=== PATIENT | female | born 1980 | race Caucasian/White ===

== ENCOUNTER 2016-04-02 13:23 | Emergency (ER) | payer BC ==
[~2016-04-02] VITALS: Ht 180.3 cm; Wt 78.5 kg
[2016-04-02 13:30] VITALS: Ht 180.3 cm; Wt 78.5 kg
[2016-04-02] MEDS ORDERED: PROCHLORPERAZINE 5 MG/ML 2 ML VIAL IV STA (14:24)
[2016-04-02] MEDS ORDERED: HYDROmorphone INJ 1 MG/ML SYR IV STA (14:24)
[2016-04-02] MEDS ORDERED: SODIUM CHLORIDE 0.9% 1000ML 2,000 ML IV STA (14:24)
[2016-04-02] MEDS ORDERED: BCPILLS PO (14:45)
[2016-04-02 14:54] LABS: BASO % 0.2 %; BASO ABS # 0.02 K/uL (0-0.2); COMPLETE YES; EOS % 0.5 %; HEMATOCRIT 38.6 % (37-47); IG% 0.4 %; LYMPH % 18.4 %; LYMPH ABS # 1.88 K/uL (1.2-3.4); MEAN CELL VOLUME 89.8 fL (80-100); MEAN CORPUSCULAR HEMOGLOBIN 31.4 pg (25-34); MEAN PLATELET VOLUME 9.1 fL (7.4-10.4); MONO % 10.2 %; NEUT % 70.3 %; PLATELET COUNT 400 K/uL (130-400)
--- NOTE | 2016-04-02 14:54 | EMERGENCY ROOM VISIT NOTE ---
History Report prepared by Rene: Jace Ye Under the Supervision of: Dr. Jamia Brandt M.D. First contact with patient: 14:09 Chief Complaint: ILLNESS Stated Complaint: [employer] SUSPECTS MENINGITIS History of Present Illness The patient is a 35 year old female who presents to the Emergency Room with complaints of a constant worsening headache for the past 4 days. The patient currently rates her discomfort as a 10/10 in severity. The patient states that she has been having a worsening headache for four days, and she states that she has felt like she has been having a fever, chills, and some sweating for the past two days. She additionally states that she has been having some pain between her shoulder blades, and she is having some confusion. The patient states that she has a history of migraines, however this one feels different and it is in the back of her head and behind her eyes. The patient denies any vomiting, diarrhea, and any chances of being . The patient states that the light irritates her, however sound does not affect her. She states that her ams and legs have normal motor functions. The patient sates that she also was having flu like symptoms since March 18, however they went away 8 days ago. The patient additionally states that she was just on a long flight to [facility]. She additionally states that she has a chronic vaginitis. Source of History: patient Onset: four days ago Position: head Symptom Intensity: 10/10 Quality: ache Timing: constant, worsening Associated Symptoms: + chills, + diaphoresis, + fevers, + headache Note: Associated symptoms: confusion, and pain between shoulder blades. Review of Systems See HPI for pertinent positives & negatives. A total of 10 systems reviewed and were otherwise negative. Past Medical & Surgical Medical Problems: (1) Vaginitis Social History Smoking Status: Never Smoker Marital Status: Housing Status: lives with significant other Occupation Status: employed Current/Historical Medications Scheduled Control Pills ( Control Pills), 1 TAB PO DAILY Clindamycin Hcl (Cleocin), 300 MG PO QID Fluconazole (Diflucan), 1 TAB PO DAILY Allergies Coded Allergies: Amoxicillin (Unverified Allergy, Severe, fungal infection, 04/02/16) Penicillins (Unverified Allergy, Severe, fungal infection, 04/02/16) Physical Exam Vital Signs Date Time Temp Pulse Resp B/P Pulse Ox O2 Delivery O2 Flow Rate FiO2 04/02/16 17:39 37.2 92 18 116/69 100 04/02/16 14:54 92 04/02/16 14:49 92 18 123/67 100 Room Air 04/02/16 13:30 37.2 100 16 122/78 99 Physical Exam Vital signs reviewed. General: Well-appearing female, in no significant distress. HEENT: Positive photophobia. No meningeal signs. No scleral icterus, PERRLA, neck supple. Atraumatic. Cardiovascular: Regular rate and rhythm, no extra sounds. Pulmonary: Clear to auscultation bilaterally, normal work of breathing. Abdomen: Soft, nontender, nondistended, positive bowel sounds. Musculoskeletal: Atraumatic, no peripheral edema. Neurologic: Patient awake alert and oriented x 3, full strength in all 4 extremities. Cranial nerves 2 through 12 grossly intact. No meningeal signs Skin: Warm, dry, no rash Medical Decision & Procedures ER Provider Diagnostic Interpretation: CT results as stated below per my review and radiologist interpretation: CT OF THE HEAD WITHOUT CONTRAST CLINICAL HISTORY: Headache. COMPARISON STUDY: No previous studies for comparison. CT DOSE: 601.98 mGy.cm TECHNIQUE: Helical axial images of the head were obtained without IV contrast. Automated exposure control was utilized for the study. FINDINGS: No acute intracranial hemorrhage, midline shift or mass effect is present. Ventricular system is normal. The basilar cisterns are patent. There are no extra axial collections. Pretty-white differentiation is maintained. There are no findings to suggest acute dural sinus thrombosis or acute territorial infarct. The right maxillary sinus is largely opacified and contains an air-fluid level. There is moderate mucosal thickening of the left maxillary sinus. Note is also made of extensive mucosal thickening of the right sphenoid sinus and marked mucosal thickening with near complete opacification of the ethmoid sinuses. An air-fluid level within the frontal sinuses is noted. Mastoid air cells are clear. There are no calvarial abnormalities. IMPRESSION: 1. No acute intracranial findings. 2. Extensive paranasal sinus opacification. The findings suggest acute sinusitis. Electronically signed by: Scott Burrell M.D. 04/02/2016 4:21 PM Dictated Date/Time: 04/02/2016 4:16 PM Laboratory Results 04/02/16 14:40 Red Blood Count 4.30, Mean Corpuscular Volume 89.8, Mean Corpuscular Hemoglobin 31.4, Mean Corpuscular Hemoglobin Concent 35.0, Mean Platelet Volume 9.1, Neutrophils (%) (Auto) 70.3, Lymphocytes (%) (Auto) 18.4, Monocytes (%) (Auto) 10.2, Eosinophils (%) (Auto) 0.5, Basophils (%) (Auto) 0.2, Neutrophils # (Auto ) 7.17, Lymphocytes # (Auto) 1.88, Monocytes # (Auto) 1.04, Eosinophils # (Auto ) 0.05, Basophils # (Auto) 0.02 04/02/16 14:40 Test 04/02/16 14:40 04/02/16 15:40 White Blood Count 10.20 K/uL (4.8-10.8) Red Blood Count 4.30 M/uL (4.2-5.4) Hemoglobin 13.5 g/dL (12.0-16.0) Hematocrit 38.6 % (37-47) Mean Corpuscular Volume 89.8 fL (80-100) Mean Corpuscular Hemoglobin 31.4 pg (25-34) Mean Corpuscular Hemoglobin Concent 35.0 g/dl (32-36) Platelet Count 400 K/uL (130-400) Mean Platelet Volume 9.1 fL (7.4-10.4) Neutrophils (%) (Auto) 70.3 % Lymphocytes (%) (Auto) 18.4 % Monocytes (%) (Auto) 10.2 % Eosinophils (%) (Auto) 0.5 % Basophils (%) (Auto) 0.2 % Neutrophils # (Auto) 7.17 K/uL (1.4-6.5) Lymphocytes # (Auto) 1.88 K/uL (1.2-3.4) Monocytes # (Auto) 1.04 K/uL (0.11-0.59) Eosinophils # (Auto) 0.05 K/uL (0-0.5) Basophils # (Auto) 0.02 K/uL (0-0.2) RDW Standard Deviation 39.9 fL (36.4-46.3) RDW Coefficient of Variation 12.2 % (11.5-14.5) Immature Granulocyte % (Auto) 0.4 % Immature Granulocyte # (Auto) 0.04 K/uL (0.00-0.02) Anion Gap 11.0 mmol/L (3-11) Est Creatinine Clear Calc Drug Dose 113.5 ml/min Estimated GFR () 115.0 Estimated GFR (Non- 99.2 BUN/Creatinine Ratio 8.8 (10-20) Calcium Level 8.8 mg/dl (8.5-10.1) Magnesium Level 2.3 mg/dl (1.8-2.4) Total Bilirubin 0.3 mg/dl (0.2-1) Direct Bilirubin < 0.1 mg/dl (0-0.2) Aspartate Amino Transf (AST/SGOT) 15 U/L (15-37) Alanine Aminotransferase (ALT/SGPT) 22 U/L (12-78) Alkaline Phosphatase 70 U/L (45-117) Total Protein 7.6 gm/dl (6.4-8.2) Albumin 3.2 gm/dl (3.4-5.0) Human Chorionic Gonadotropin, Qual NEG (NEG) Urine Color DK YELLOW Urine Appearance CLEAR (CLEAR) Urine pH 6.0 (4.5-7.5) Urine Specific Marshall 1.023 (1.000-1.030) Urine Protein NEG (NEG) Urine Glucose (UA) NEG (NEG) Urine Ketones TRACE (NEG) Urine Occult Blood NEG (NEG) Urine Nitrite NEG (NEG) Urine Bilirubin NEG (NEG) Urine Urobilinogen NEG (NEG) Urine Leukocyte Esterase TRACE (NEG) Urine WBC (Auto) 1-5 /hpf (0-5) Urine RBC (Auto) 0-4 /hpf (0-4) Urine Hyaline Casts (Auto) 5-10 /lpf (0-5) Urine Epithelial Cells (Auto) >30 /lpf (0-5) Urine Bacteria (Auto) 1+ (NEG) Laboratory results per my review. Medications Administered Medications (Trade) Dose Ordered Sig/Neema Route Start Time Stop Time Status Last Admin Dose Admin Sodium Chloride (Nss 1000ml) 2,000 ml @ 999 mls/hr Q2H1M STAT IV 04/02/16 14:24 04/02/16 16:24 DC 04/02/16 14:49 999 MLS/HR Prochlorperazine Edisylate (Compazine Inj) 10 mg NOW STAT IV 04/02/16 14:24 04/02/16 14:27 DC 04/02/16 14:52 10 MG Hydromorphone HCl (Dilaudid Inj) 1 mg NOW STAT IV 04/02/16 14:24 04/02/16 14:27 DC 04/02/16 14:55 1 MG Methylprednisolone Sodium Succinate 10 mg 10 mg NOW STAT IV 04/02/16 14:24 04/02/16 14:27 DC 04/02/16 14:51 10 MG Clindamycin Phosphate/Dextrose (Cleocin Iv/ Dextrose Add-Ronco 100ML) 106 ml @ 100 mls/hr ONE ONCE IV 04/02/16 16:30 04/02/16 17:33 DC 04/02/16 17:05 100 MLS/HR Oxymetazoline HCl (Afrin 0.05% Nasal Grayson) 2 sprays NOW ONCE SIMON 04/02/16 16:30 04/02/16 16:31 DC 04/02/16 17:31 2 SPRAYS Clindamycin HCl (Cleocin 150MG Home Pack) 1 homepack UD ONCE PO 04/02/16 17:00 04/02/16 17:01 DC 04/02/16 17:31 1 HOMEPACK Acetaminophen/ Hydrocodone Bitart ([place] 5/325mg Home Pack) 1 homepack UD ONCE PO 04/02/16 17:00 04/02/16 17:01 DC 04/02/16 17:31 1 HOMEPACK ED Course 1420: Past medical records reviewed. The patient was evaluated in room C8. A complete history and physical examination was performed. 1424: Solu-Medrol IV 10mg IV, Dilaudid Inj 1mg IV, Compazine Inj 10mg IV, Sodium Chloride 2000 ml @ 999 mls/hr IV 1630: Afrin 0.05% Nasal Grayson 2 sprays SIMON, Clindamycin Phosphate 900mg/ Dextrose 106 ml @ 100 mls/hr IV 1632: Upon reevaluation, the patient appeared to have improvement of her symptoms. I discussed findings with her. She verbalized agreement of the treatment plan. She was discharged home. 1700: [place] 5/325mg 1 Home Pack PO, Cleocin 150mg 1 home pack PO Medical Decision Differential Diagnoses include: Intracranial hemorrhage, intracranial mass, migraine headache, tension headache, sinusitis, meningitis This patient was evaluated and appeared to be in no significant distress. IV access was obtained and laboratory work was drawn. The patient was placed on the monitoring manager and found to be in a normal sinus rhythm. Patient was sent over for concerns of meningitis however the patient had a headache since March 18, she has no neck pain, normal white count and no fever. CT scan of the head was performed and reveals no evidence of acute intracranial abnormality however the patient has notable sinusitis. The patient was medicated with Afrin nasal spray, IV clindamycin. She was informed of the findings. She states that her vaginitis/yeast is magnified with any antibiotic therapy. She requested Diflucan daily during the course. Patient was given a prescription for Diflucan 100 mg daily while taking clindamycin 300 mg 4 times a day for 10 days. She will use Afrin nasal spray twice daily for 3 days. Patient will follow-up with her primary care physician for reevaluation this week and return to the ER for worsening of symptoms or any medical concerns. Impression Primary Impression: Sinusitis Additional Impression: Headache Scribe Attestation The scribe's documentation has been prepared under my direction and personally reviewed by me in its entirety. I confirm that the note above accurately reflects all work, treatment, procedures, and medical decision making performed by me. Departure Information Dispostion Home / Self-Care Prescriptions Fluconazole (DIFLUCAN) 100 Mg Tab 1 TAB PO DAILY for 10 Days, #10 TAB Prov: Jamia Brandt M.D. 04/02/16 Clindamycin Hcl (CLEOCIN) 300 Mg Cap 300 MG PO QID for 10 Days, #40 CAP Prov: Jamia Brandt M.D. 04/02/16 Referrals RV. Helms MD (PCP) Forms HOME CARE DOCUMENTATION FORM, IMPORTANT VISIT INFORMATION, WORK / SCHOOL INSTRUCTIONS Patient Instructions A Signature Page, My [facility] Additional Instructions Diagnosis: Sinusitis, headache Clindamycin 300 mg 4 times daily for 10 days. Diflucan 100 mg daily for 10 days. Afrin nasal spray 2 sprays in each nostril twice daily for 3 days. [place] one to 2 tabs every 6 hours as needed for pain. Do not drive or take Tylenol with this medication. Ibuprofen 600 mg every 6 hours as needed for pain with food. Follow-up with your primary care physician this week for reevaluation. Return to the ER for worsening of symptoms or any medical concerns.
[2016-04-02 15:13] LABS: ALT/SGPT 22 U/L (12-78); BLOOD UREA NITROGEN 7 mg/dl (7-18); BUN/CREATININE RATIO 8.8 (10-20); CALCIUM 8.8 mg/dl (8.5-10.1); CARBON DIOXIDE 28 mmol/L (21-32); CHLORIDE 103 mmol/L (98-107); CREATININE 0.78 mg/dl (0.60-1.20); GLUCOSE 90 mg/dl (70-99); MAGNESIUM 2.3 mg/dl (1.8-2.4); POTASSIUM 3.7 mmol/L (3.5-5.1); SODIUM 142 mmol/L (136-145)
[2016-04-02 15:16] LABS: ALKALINE PHOSPHATASE 70 U/L (45-117); AST/SGOT 15 U/L (15-37)
[2016-04-02 15:33] LABS: PREG INTERNAL NEGATIVE QC NEG CLEAR BACKGROUND; PREG INTERNAL POSITIVE QC POS CONTROL LINE
--- NOTE | 2016-04-02 16:23 | DIAGNOSTIC IMAGING REPORT ---
CT OF THE HEAD WITHOUT CONTRAST CLINICAL HISTORY: Headache. COMPARISON STUDY: No previous studies for comparison. CT DOSE: 601.98 mGy.cm TECHNIQUE: Helical axial images of the head were obtained without IV contrast. Automated exposure control was utilized for the study. FINDINGS: No acute intracranial hemorrhage, midline shift or mass effect is present. Ventricular system is normal. The basilar cisterns are patent. There are no extra axial collections. Pretty-white differentiation is maintained. There are no findings to suggest acute dural sinus thrombosis or acute territorial infarct. The right maxillary sinus is largely opacified and contains an air-fluid level. There is moderate mucosal thickening of the left maxillary sinus. Note is also made of extensive mucosal thickening of the right sphenoid sinus and marked mucosal thickening with near complete opacification of the ethmoid sinuses. An air-fluid level within the frontal sinuses is noted. Mastoid air cells are clear. There are no calvarial abnormalities. IMPRESSION: 1. No acute intracranial findings. 2. Extensive paranasal sinus opacification. The findings suggest acute sinusitis. Electronically signed by: Scott Burrell M.D. 04/02/2016 4:21 PM Dictated Date/Time: 04/02/2016 4:16 PM
[2016-04-02 16:25] LABS: URINE APPEARANCE CLEAR (CLEAR); URINE BILIRUBIN NEG (NEG); URINE COLOR DK YELLOW; URINE EPITHELIAL CELL AUTO >30 /lpf (0-5); URINE NITRITE NEG (NEG); URINE SPECIFIC GRAVITY 1.023 (1.000-1.030); UROBILINOGEN NEG (NEG); ZZUR CULT IF INDIC CLEAN CATCH YES
[2016-04-02] MEDS ORDERED: CLINDAMYCIN IV 900 MG in DEXTROSE 5% ADD-VANTAGE 100ML 100 ML IV ONE (16:30)
[2016-04-02] MEDS ORDERED: OXYMETAZOLINE HCL 0.05% NA SPR 15 ML BTL NAE ONE (16:30)
[2016-04-02 16:31] LABS: REVIEW REQ? NO
[2016-04-02 16:32] LABS: MANUAL MICROSCOPIC REQUIRED? NO
[2016-04-02] MEDS ORDERED: FLUC100T4 PO (16:45)
[2016-04-02] MEDS ORDERED: CLIN300C2 PO (16:45)
[2016-04-02] MEDS ORDERED: CLINDAMYCIN 150MG HOME PACK PO ONE (17:00)
[2016-04-02] MEDS ORDERED: NORCO 5/325MG HOME PACK PO ONE (17:00)
[2016-04-02 17:39] VITALS: BP 116/69; PULSE 92; TEMP 37.2; O2SAT 100
[2016-11-30] MEDS ORDERED: HYDR-5688 PO (10:32)
== END 2016-04-02 17:40 | disposition home or self-care (01) ==
LOC: C.EDB 13:25 → C.EDC 17:40
DX: J32.9 Chronic sinusitis, unspecified (principal); R51 Headache; N76.1 Subacute and chronic vaginitis; Z79.3 Long term (current) use of hormonal contraceptives; Z79.899 Other long term (current) drug therapy

== ENCOUNTER → 2016-04-25 | Outpatient (CLI) | payer BC ==
[~2016-04-25] MED LIST: BCPILLS PO; HYDR-5688 PO
--- NOTE | 2016-04-25 08:53 | DIAGNOSTIC IMAGING REPORT ---
FUSION CT SINUSES W/O CLINICAL HISTORY: Acute sinusitis COMPARISON STUDY: No previous studies for comparison. FINDINGS: There is bilateral maxillary sinus mucosal thickening left greater than right. There is mild to moderate ethmoid mucosal thickening. There is mild mucosal thickening within the sphenoid. There is moderate mucosal thickening within the frontal sinuses. The right ostiomeatal unit is patent. The left ostiomeatal unit is occluded by soft tissue. There is partial pneumatization of the right middle turbinate The portal notches are covered. The olfactory fossa measures 4 mm in depth bilaterally. IMPRESSION: 1. Mild pansinus disease 2. The right ostiomeatal unit is patent. The left ostiomeatal unit is occluded by soft tissue. Electronically signed by: Lawson Avila M.D. 04/25/2016 8:52 AM Dictated Date/Time: 04/25/2016 8:48 AM
== END | disposition home or self-care (01) ==
LOC: C.CTS 08:30
DX: J01.90 Acute sinusitis, unspecified (principal)

== ENCOUNTER → 2016-05-29 | Outpatient (CLI) | payer BC ==
--- NOTE | 2016-05-29 09:34 | DIAGNOSTIC IMAGING REPORT ---
THYROID ULTRASOUND HISTORY: Dysphagia R13.10 Trouble [id number] COMPARISON: None. FINDINGS: Right lobe: 5.7 cm maximum dimension. 2 mm hypoechoic nodule Left lobe: 5.3 cm maximum dimension. No significant nodularity. Isthmus: No nodules. IMPRESSION: 1. No significant thyroid nodularity or enlargement. 2. 2 mm low suspicion mid pole right thyroid nodule Electronically signed by: Archie Zheng M.D. 05/29/2016 9:33 AM Dictated Date/Time: 05/29/2016 9:32 AM
== END | disposition home or self-care (01) ==
LOC: C.ULTRBC 08:48
PROVIDERS: ATTEND Internal Medicine
DX: R13.10 Dysphagia, unspecified (principal)

== ENCOUNTER → 2016-08-29 | Outpatient (CLI) | payer BC ==
--- NOTE | 2016-08-29 13:57 | DIAGNOSTIC IMAGING REPORT ---
VIDEO SWALLOW HISTORY: Dysphagia DYSPHAGIA TECHNIQUE: Video fluoroscopic evaluation of swallowing was performed in the AP and lateral projections by the speech pathology staff. The patient is fed nectar-thick and thin liquid barium, a barium coated wafer, and barium pudding. FLUOROSCOPY TIME: 2.2 minutes. COMPARISON STUDY: None. FINDINGS: There is normal hyoid excursion and epiglottic deflection. No significant penetration or aspiration identified. Swallowing function is within normal limits. IMPRESSION: 1. No aspiration identified. 2. Please see the speech pathologist report for detailed findings and recommendations. Electronically signed by: Archie Zheng M.D. 08/29/2016 1:56 PM Dictated Date/Time: 08/29/2016 1:53 PM
--- NOTE | 2016-08-29 17:39 | SWALLOWING EVALUATION ---
REFERRING SPEECH PATHOLOGIST: n/a HISTORY: This 35 year-old female was referred for a VFSS at [facility] in order to address c/o globus sensation and increased difficulty swallowing thick secretions. The patient has a PMH significant for chronic sinusitis and is being followed by an distributor operator (referring physician). Currently the patient's diet level is regular. PROCEDURE: The patient was seen in the Radiology Department of [facility] for the VFSS. Cursory examination of the oral cavity revealed adequate dentition. Movement of the articulators was WNL. The patient was seated on a stool and was viewed in both the Anterior-Posterior (A-P) and Lateral planes. Volitional phonation exercises completed in the A-P plane revealed bilateral vocal fold movement and vocal intensity within functional limits. In the lateral plane, the patient was given the following boluses: 1 tsp. thin liquid barium x 2, single swallow thin liquid barium self-presented from a cup, sequential swallows of thin liquid barium self-presented from a cup, 1 tsp. nectar-thick liquid barium, single swallow nectar-thick liquid barium self-presented from a cup, 1 tsp. barium pudding, and 1 club cracker with barium pudding. The patient was then repositioned into the A-P plane and given 1 tsp. barium pudding. RESULTS: Oral Stage: No labial bolus escape. Cohesive bolus formed between tongue and palate during oral bolus hold of thin liquids. Bolus preparation and transport timely and complete. No oral bolus retention after the swallow. Pharyngeal stage of the swallow initiated when the bolus head was at the posterior angle of the ramus. The oral stage of the swallow was WFL. Pharyngeal Stage: No bolus between the soft palate and pharyngeal wall. Laryngeal elevation, anterior hyoid excursion, epiglottic inversion, laryngeal vestibular closure, pharyngeal stripping wave, pharyngeal contraction were all complete. Distention and duration of PES opening was complete. No bolus retention between the tongue base and pharyngeal wall. No pharyngeal bolus retention after the swallow. There was no penetration or aspiration during this study. The pharyngeal swallow was WFL. Esophageal Stage: A pudding bolus transited the esophagus without evidence of retention. SUMMARY/RECOMMENDATIONS: This patient presents with normal oral-pharyngeal and esophageal swallow function. The following is recommended: 1. Regular diet as tolerated 2. Consideration of f/u with referring physician as needed if symptoms persist. A summary of the results and recommendations was discussed with the patient immediately following the study. She verbalized understanding. Thank you for referral of this patient. Please contact me at if any additional information is needed.
== END | disposition home or self-care (01) ==
LOC: C.RAD 13:03
PROVIDERS: ATTEND Otolaryngology
DX: J32.0 Chronic maxillary sinusitis (principal); R13.10 Dysphagia, unspecified

== ENCOUNTER → 2016-11-10 | Outpatient (CLI) | payer BC ==
--- NOTE | 2016-11-10 17:14 | DIAGNOSTIC IMAGING REPORT ---
CHEST 2 VIEWS ROUTINE CLINICAL HISTORY: 35 years-old Female presenting with PRE OP TESTING. TECHNIQUE: PA and lateral views of the chest were obtained. COMPARISON: None. FINDINGS: Cardiomediastinal silhouette normal. Lungs and pleural spaces clear. Osseous structures normal. Upper abdomen normal. IMPRESSION: 1. No acute cardiopulmonary disease. Electronically signed by: Raz Villegas M.D. 11/10/2016 5:13 PM Dictated Date/Time: 11/10/2016 5:12 PM
== END | disposition home or self-care (01) ==
LOC: C.RAD 16:50
PROVIDERS: ATTEND Physician Assistant Medical
DX: Z01.810 Encounter for preprocedural cardiovascular examination (principal)

== ENCOUNTER → 2016-11-30 | Day surgery (SDC) | payer BC ==
[2016-11-08 15:24] VITALS: Ht 180.3 cm; Wt 90.0 kg
[~2016-11-30] VITALS: Ht 180.3 cm; Wt 90.0 kg
[~2016-11-30] MED LIST changes: +ATROPINE SULFATE 0.1 MG/ML 5ML SYR IV PRN; +BUPIVACAINE 0.25% 2.5MG/ML PF 10 ML VIAL ONE; +CLINDAMYCIN PHOS 150 MG/ML 2 ML VIAL IV SCH; +DEXAMETHASONE SOD INJ 4 MG/ML VIAL IV PRN; +DEXAMETHASONE SOD INJ 4 MG/ML VIAL ONE; +EpHEDrine SULFATE INJ 50 MG/ML AMP IV PRN; +FENTANYL CITRATE INJ 50 MCG/1 ML 2 ML VIAL IV PRN; +FENTANYL CITRATE INJ 50 MCG/1 ML 2 ML VIAL ONE; +HYDROCODONE/ACETAMOPHEN 5/325MG TAB PO PRN; +KETOROLAC TROMETHAMINE 30 MG/ML VIAL IV. PRN; +KETOROLAC TROMETHAMINE 30 MG/ML VIAL ONE; +LABETALOL HCL IV 5 MG/ML 20ML IV PRN; +LACTATED RINGER'S 1000ML 1,000 ML IV SCH; +LIDOCAINE HCL 2% 2 ML VIAL (20MG/ML) ONE; +METOCLOPRAMIDE HCL INJ 5 MG/ML 2 ML VIAL IV PRN; +MIDAZOLAM HCL 1 MG/ML 2ML VIAL ONE; +MoRPHine SULFATE 4 MG/ML 1 ML CARP\\VIAL IV PRN; +ONDANSETRON INJ 2 MG/ML 2 ML VIAL IV PRN; +ONDANSETRON INJ 2 MG/ML 2 ML VIAL ONE; +PHENYLEPHRINE 100MCG/ML 5ML SYR IV PRN; +PROPOFOL IV EMULSION 10 MG/ML 20 ML VIAL IV ONE; +SODIUM CHLORIDE 0.9% 1000ML 1,000 ML IV SCH
--- NOTE | 2016-11-30 07:57 | History & Physical Bridge - SC ---
H&P Re-Evaluation Bridge Note: I have examined the patient, reviewed the History & Physical and in the interval since the performance of the History & Physical I have noted the following changes of clinical significance: No changes noted
[2016-11-30] MEDS: BUPIVACAINE/EPINEPHRINE 0.25% 1:200,000 30 ML VIAL ONE (09:44)
[2016-11-30] MEDS: BUPIVACAINE 0.25% 30 ML VIAL ONE ×2 (09:45→10:11)
--- NOTE | 2016-11-30 10:33 | Discharge Instructions-SurgCtr ---
Discharge Instructions Date of Service Nov 30, 2016. Visit Reason for Visit: Cubital Tunnel Syndrome, Medial Epicondylitis Discharge Discharge Diagnosis / Problem: SAME ABOVE Discharge Goals Goal(s): Decrease discomfort, Improve function Activity Recommendations Activity Limitations: as noted below Lifting Limitations: until after follow-up appointment Exercise/Sports Limitations: until after follow-up appointment Anesthesia . Post Anesthesia Instructions: If you have had General Anesthesia or IV Sedation: * Do not drive today. * Resume driving when surgeon permits. * Do not make important decisions or sign legal documents today. * Call surgeon for: 1. Temperature elevations greater than 101 degrees F. 2. Uncontrollable pain. 3. Excessive bleeding. 4. Persistent nausea and vomiting. 5. Medication intolerance (nausea, vomiting or rash). * For nausea and vomiting use only clear liquids such as: tea, soda, bouillon until nausea subsides, then gradually increase diet as tolerated. * If you have any concerns or questions, call your surgeon's office. If physician is unavailable and it is an emergency, call 911 or go to the nearest emergency room. . Instructions / Follow-Up Instructions / Follow-Up MEDICATIONS: * Resume previous medications unless instructed otherwise by your surgeon. * Always take pain medication on a full stomach or with food to avoid upset stomach. * Do not drink alcohol or drive while taking narcotics. * Ibuprofen or Tylenol may be taken if narcotic not needed. SPECIAL CARE INSTRUCTIONS: __ None _X_ Keep extremity elevated and iced x 48 hours; apply ice 20-30 minutes 8-10 times/day. May remove at night. _X_ Sling _X_24 hrs/day __ Remove at night __ Shoulder Immobilizer __ 24 hrs/day __ Remove at night _X_ Dressing _X_ Maintain until seen in office, may shower with plastic over site __ Remove dressings in 24-48 hours and then may shower __ Cover incisions with band-aids after showering __ Do not remove steri-strips Call physician if chills or temperature rises above 102 degrees or pain unrelieved by prescribed pain medications at . . Diet Recommendations Home Diet: no limitations Fluid Restriction: None Procedures Procedures Performed: Ulnar Nerve Transposition, right with Medial Tenotomy Pending Studies Studies pending at discharge: no Work Instructions Return To Work: after follow-up Medical Emergencies . Who to Call and When: Medical Emergencies: If at any time you feel your situation is an emergency, please call 911 immediately. . Non-Emergent Contact Non-Emergency issues call your: Primary Care Provider Call Non-Emergent contact if: you have a fever, temperature is above 101.5 . . "Provider Documentation" section prepared by Cortez Garcia. .
--- NOTE | 2016-11-30 10:37 | OPERATIVE REPORT ---
DATE OF OPERATION: 11/30/2016 PREOPERATIVE DIAGNOSES: Medial epicondylitis and cubital tunnel syndrome of the right elbow. POSTOPERATIVE DIAGNOSES: Same. PROCEDURE: Right medial tenotomy for medial epicondylitis with subcutaneous ulnar nerve transposition. SURGEON: Dr. Hernan Mathew. MARINE GEAR KEEPER: Sridhar Garcia PA-C, whose assistance was necessary for positioning the elbow and helping with instrumentation. ANESTHESIA: General. COMPLICATIONS: None. CONDITION: Stable to PACU. INDICATIONS: Mago is a pleasant 36-year-old female who presented to my office with pain and numbness mostly in the ulnar nerve distribution of her right fingers. She is also having a lot of medial epicondylitis. EMG study was diagnostic for cubital tunnel syndrome. After failing conservative treatment, she elected to undergo an ulnar nerve transposition with medial tenotomy. DESCRIPTION OF PROCEDURE: On 11/30/2016, she arrived at [facility] for the above procedure. She was seen in the preoperative holding area and the operative extremity was identified and signed. She was not given a preoperative antibiotic because she refused it preoperatively. She has had complications from antibiotics in the past and she was hoping to not have one. I talked to her about the risks of not having antibiotic and she still elected to go without antibiotic coverage for the case. She was then brought back to the operating room, laid on the table in supine position and put under general anesthesia. The right elbow was then prepped and draped in sterile fashion. Time-out was done and the patient and operative extremity was properly identified. A curvilinear incision was made directly over the medial epicondyle. Dissection was taken down through the fascia with care not to disrupt the medial antebrachial cutaneous nerves. Dissection was taken down to the cubital tunnel and the cubital tunnel was released. Care was taken to ensure complete release proximally with some removal of the intermuscular septum and the release was taken complete distally through the flexor pronator mass. The nerve was mobilized and the motor branch was left intact. Attention was then turned to the flexor pronator fascia. A sling was elevated for a subcutaneous transposition. Once the sling was elevated, the fascia was removed between the pronator teres and the flexor carpi ulnaris to complete the medial tenotomy for the medial epicondylitis. The ulnar nerve was then transposed and the sling was tied to the subcutaneous fat. The elbow was flexed and extended and there was no kinking of the nerve. There was plenty of room. The wound was then irrigated and closed with 3-0 Vicryl and 4-0 nylon sutures in a mattress fashion. She was then placed in a posterior splint, extubated, transferred to a [facility] and taken to the postanesthesia care unit in stable condition. She tolerated the procedure well. I attest to the content of the Intraoperative Record and any orders documented therein. Any exception s are noted below.
--- NOTE | 2016-11-30 11:04 | Anesthesia Progress Nt - [facility] ---
Anesthesia Post Op Note Date & Time Nov 30, 2016 at 11:04 Vital Signs Pain Intensity: 2 Vital Signs Past 12 Hours Date Time Temp Pulse Resp B/P (MAP) Pulse Ox O2 Delivery O2 Flow Rate FiO2 11/30/16 10:47 87 17 100 11/30/16 10:47 87 17 100 11/30/16 10:47 82 17 11/30/16 10:47 82 17 11/30/16 10:46 124/73 11/30/16 10:46 124/73 11/30/16 10:42 17 11/30/16 10:42 93 17 11/30/16 10:42 17 11/30/16 10:42 93 17 11/30/16 10:41 125/76 11/30/16 10:41 125/76 11/30/16 10:37 55 23 11/30/16 10:37 52 23 100 11/30/16 10:37 52 23 100 11/30/16 10:37 55 23 11/30/16 10:36 115/63 11/30/16 10:36 115/63 11/30/16 10:33 111/61 11/30/16 10:33 111/61 11/30/16 10:32 36.3 52 14 115/63 100 Mask 6 11/30/16 08:18 36.7 77 16 114/78 (90) 98 Room Air Notes Mental Status: alert / awake / arousable, participated in evaluation Pt Amnestic to Procedure: Yes Nausea / Vomiting: adequately controlled Pain: adequately controlled Airway Patency, RR, SpO2: stable & adequate BP & HR: stable & adequate Hydration State: stable & adequate Anesthetic Complications: no major complications apparent
[2016-11-30 11:34] VITALS: TEMP 36.4
[2016-11-30 12:18] VITALS: BP 109/71; PULSE 57; O2SAT 99
--- NOTE | 2016-11-30 15:39 | [facility] Post Operative Brief Note ---
Immediate Operative Summary Operative Date Nov 30, 2016. Pre-Operative Diagnosis Medial epicondylitis and cubital tunnel syndrome, right elbow Post-Operative Diagnosis same as preop Procedure(s) Performed Ulnar Nerve Transposition with Medial Tenotomy, Right Surgeon Dr. Mathew Clinic Director Surgeon(s) Tommy Garcia PA-C Estimated Blood Loss 20ml Findings as above Specimens none per surgeon Complication(s) None Disposition Recovery Room / PACU
== END | disposition home or self-care (01) ==
LOC: X.SURG 08:09
PROVIDERS: ATTEND Orthopaedic Surgery
DX: M77.01 Medial epicondylitis, right elbow (principal); G56.21 Lesion of ulnar nerve, right upper limb

== ENCOUNTER → 2017-02-01 | Day surgery (SDC) | payer BC ==
[2017-01-11 09:55] VITALS: Ht 180.3 cm; Wt 85.7 kg
[~2017-02-01] VITALS: Ht 180.3 cm; Wt 85.7 kg
[~2017-02-01] MED LIST changes: -BUPIVACAINE 0.25% 2.5MG/ML PF 10 ML VIAL ONE; +BUPIVACAINE 0.25% 30 ML VIAL ONE; +BUPIVACAINE/EPINEPHRINE 0.25% 1:200,000 30 ML VIAL ONE; -CLINDAMYCIN PHOS 150 MG/ML 2 ML VIAL IV SCH; -DEXAMETHASONE SOD INJ 4 MG/ML VIAL IV PRN; -EpHEDrine SULFATE INJ 50 MG/ML AMP IV PRN; +HYDROmorphone INJ 1 MG/ML SYR IV PRN; +KETAMINE HCL INJ 50 MG/ML 10 ML VIAL ONE; -KETOROLAC TROMETHAMINE 30 MG/ML VIAL IV. PRN; -LABETALOL HCL IV 5 MG/ML 20ML IV PRN; -METOCLOPRAMIDE HCL INJ 5 MG/ML 2 ML VIAL IV PRN; -MoRPHine SULFATE 4 MG/ML 1 ML CARP\\VIAL IV PRN; -PHENYLEPHRINE 100MCG/ML 5ML SYR IV PRN; +PROMETHAZINE HCL INJ 12.5 MG in SODIUM CHLORIDE 0.9% 50ML 50 ML IV PRN; +SODIUM CHLORIDE 0.9% INJ 10 ML VIAL ONE
--- NOTE | 2017-02-01 13:08 | OPERATIVE REPORT ---
DATE OF OPERATION: 02/01/2017 PREOPERATIVE DIAGNOSIS: Cubital tunnel syndrome of the left elbow. POSTOPERATIVE DIAGNOSIS: Same. PROCEDURE: Ulnar nerve subcutaneous transposition. SURGEON: Dr. Hernan Mathew. EXECUTIVE CANDIDATE DEVELOPER: Sridhar Garcia PA-C, whose assistance was necessary for helping with retraction and positioning the elbow. ANESTHESIA: General. COMPLICATIONS: None. CONDITION: Stable to PACU. INDICATIONS: Mago is a pleasant 36-year-old female who has been dealing with bilateral cubital tunnel syndrome. She had an ulnar nerve transposition on her right side several weeks ago. She has done very well with that. She elected to proceed with a left ulnar nerve transposition. DESCRIPTION OF PROCEDURE: On 02/01/2017, she arrived at [facility] for the above procedure. She was seen in the preoperative holding area and the operative extremity was identified and signed. She was given a preoperative antibiotic and taken back to the operating room, laid on the table in supine position and put under general anesthesia. The left elbow was then prepped and draped in sterile fashion. A time-out was done and the patient and operative extremity was properly identified. A curvilinear incision was made around the medial epicondyle. Dissection was taken to the fascia and Vanessa's ligament was opened up. The ulnar nerve was identified. It was almost purple in color from the compression. The ulnar nerve was freed up through Vanessa's ligament and up through the flexor pronator fascia. Dissection was taken proximally. The intermuscular septum was released and the ulnar nerve was completely freed up. Care was taken not to disrupt the motor branch. Once I had the ulnar nerve completely freed, a sling was made out of the subcutaneous fascia from the flexor pronator mass. The ulnar nerve was transposed anteriorly and the fascial sling was tied to the subcutaneous fat. Care was taken to ensure there was no kinking of the nerve in extension or flexion. The wound was then irrigated and closed with a 3-0 Vicryl and a 4-0 nylon. She was then placed in a posterior splint. She was then extubated, transferred to a [facility] and taken to the postanesthesia care unit in stable condition. She tolerated the procedure well. I attest to the content of the Intraoperative Record and any orders documented therein. Any exception s are noted below.
--- NOTE | 2017-02-01 13:16 | Discharge Instructions-[facility]urgCtr ---
Discharge Instructions Date of Service Feb 01, 2017. Visit Reason for Visit: Cubital Tunnel Syndrome, Medial Epicondylitis Discharge Discharge Diagnosis / Problem: SAME ABOVE Discharge Goals Goal(s): Decrease discomfort, Improve function Activity Recommendations Activity Limitations: as noted below Lifting Limitations: until after follow-up appointment MEDICATIONS: * Resume previous medications unless instructed otherwise by your surgeon. * Always take pain medication on a full stomach or with food to avoid upset stomach. * Do not drink alcohol or drive while taking narcotics. * Ibuprofen or Tylenol may be taken if narcotic not needed. SPECIAL CARE INSTRUCTIONS: __ None _X_ Keep extremity elevated and iced x 48 hours; apply ice 20-30 minutes 8-10 times/day. May remove at night. _X_ Sling _X_24 hrs/day __ Remove at night __ Shoulder Immobilizer __ 24 hrs/day __ Remove at night _X_ Dressing _X_ Maintain until seen in office, may shower with plastic over site __ Remove dressings in 24-48 hours and then may shower __ Cover incisions with band-aids after showering __ Do not remove steri-strips Call physician if chills or temperature rises above 102 degrees or pain unrelieved by prescribed pain medications at . . Anesthesia . Post Anesthesia Instructions: If you have had General Anesthesia or IV Sedation: * Do not drive today. * Resume driving when surgeon permits. * Do not make important decisions or sign legal documents today. * Call surgeon for: 1. Temperature elevations greater than 101 degrees F. 2. Uncontrollable pain. 3. Excessive bleeding. 4. Persistent nausea and vomiting. 5. Medication intolerance (nausea, vomiting or rash). * For nausea and vomiting use only clear liquids such as: tea, soda, bouillon until nausea subsides, then gradually increase diet as tolerated. * If you have any concerns or questions, call your surgeon's office. If physician is unavailable and it is an emergency, call 911 or go to the nearest emergency room. . Diet Recommendations Home Diet: no limitations Fluid Restriction: None Procedures Procedures Performed: Left Ulnar Nerve Transposition Pending Studies Studies pending at discharge: no Work Instructions Return To Work: after follow-up Medical Emergencies . Who to Call and When: Medical Emergencies: If at any time you feel your situation is an emergency, please call 911 immediately. . Non-Emergent Contact Non-Emergency issues call your: Primary Care Provider Call Non-Emergent contact if: you have a fever, temperature is above 101.5 . . "Provider Documentation" section prepared by Cortez Garcia. .
[2017-02-01 14:11] VITALS: BP 135/83; PULSE 59; O2SAT 100
--- NOTE | 2017-02-01 14:14 | [facility] Post Operative Brief Note ---
Immediate Operative Summary Operative Date Feb 01, 2017. Pre-Operative Diagnosis Left Cubital Tunnel Syndrome, Medial Epicondylitis Post-Operative Diagnosis Same Procedure(s) Performed Left Ulnar Nerve Transposition Surgeon Dr. Mathew Form Stripper Surgeon(s) Tommy Garcia PA-C Estimated Blood Loss 5 ML Findings as above Specimens None Complication(s) None Disposition Recovery Room / PACU
--- NOTE | 2017-02-01 14:15 | Anesthesia Progress Nt - [facility] ---
Anesthesia Post Op Note Date & Time Feb 01, 2017 at 14:14 Vital Signs Pain Intensity: 0 Vital Signs Past 12 Hours Date Time Temp Pulse Resp B/P (MAP) Pulse Ox O2 Delivery O2 Flow Rate FiO2 02/01/17 14:11 59 16 135/83 (100) 100 Room Air 02/01/17 13:42 36.5 68 16 135/83 (100) 100 Room Air 02/01/17 13:38 75 16 100 02/01/17 13:38 36.4 77 16 02/01/17 13:36 136/71 (88) 02/01/17 13:33 94 14 02/01/17 13:33 95 14 100 02/01/17 13:31 139/68 (84) 02/01/17 13:28 93 12 02/01/17 13:28 91 12 100 02/01/17 13:26 125/70 (82) 02/01/17 13:23 104 10 100 02/01/17 13:23 102 10 02/01/17 13:21 138/76 (90) 02/01/17 13:18 108 15 100 02/01/17 13:18 109 15 02/01/17 13:16 133/71 (88) 02/01/17 13:13 103 02/01/17 13:13 103 136/74 (90) 100 02/01/17 13:12 36.3 104 16 136/74 100 Mask 6 02/01/17 10:39 37.4 84 22 139/82 (101) 100 Room Air Notes Mental Status: alert / awake / arousable, participated in evaluation Pt Amnestic to Procedure: Yes Nausea / Vomiting: adequately controlled Pain: adequately controlled Airway Patency, RR, SpO2: stable & adequate BP & HR: stable & adequate Hydration State: stable & adequate Anesthetic Complications: no major complications apparent Doing well, pain controlled, no n/v. VSS. Ready for d/c
== END | disposition home or self-care (01) ==
LOC: X.SURG 10:14
PROVIDERS: ATTEND Orthopaedic Surgery
DX: G56.22 Lesion of ulnar nerve, left upper limb (principal)